=== PATIENT | female | born 1990 | race Two or more races ===

== ENCOUNTER 2021-08-26 02:30 | Observation (INO) | payer MEDICAID, OTHER ==
[~2021-08-26] VITALS: Ht 170.2 cm; Wt 104.3 kg
== END 2021-08-26 04:02 | disposition home or self-care (01) ==
LOC: LDRP 02:30
PROVIDERS: ADMIT Obstetrics & Gynecology; ATTEND Obstetrics & Gynecology
DX: O99.613 Diseases of the digestive system complicating pregnancy, third trimester (principal); K08.89 Other specified disorders of teeth and supporting structures; O99.891 Other specified diseases and conditions complicating pregnancy; M54.2 Cervicalgia; O26.893 Other specified pregnancy related conditions, third trimester; R10.9 Unspecified abdominal pain; Z3A.35 35 weeks gestation of pregnancy
CPT/HCPCS: 59025; 81002; G0378; G0379

== ENCOUNTER 2021-08-26 04:11 | Emergency (ER) | payer MEDICAID ==
[2021-08-26 04:22] VITALS: BP 142/93
[2021-08-26] MEDS ORDERED: ACETAMINOPHEN 500 MG TAB PO ONE (04:45)
[2021-08-26] MEDS ORDERED: cefTRIAXone SOD 1,000 MG VL IM ONE (05:15)
[2021-08-26] MEDS ORDERED: LIDOCAINE VISCOUS 2% 15ML UD PO ONE (05:15)
== END 2021-08-26 05:31 | disposition left against medical advice (07) ==
LOC: ER 04:11
DX: S02.5XXA Fracture of tooth (traumatic), initial encounter for closed fracture (principal); K04.7 Periapical abscess without sinus; Z88.5 Allergy status to narcotic agent; X58.XXXA Exposure to other specified factors, initial encounter; Y93.89 Activity, other specified; Y92.89 Other specified places as the place of occurrence of the external cause; Y99.8 Other external cause status